=== PATIENT | female | born 1965 | race Caucasian/White ===

== ENCOUNTER 2016-09-19 16:07 | Observation (INO) | payer OTHER ==
[~2016-09-19] VITALS: Ht 149.9 cm; Wt 84.8 kg
[~2016-09-19 16:07] MED LIST: FLAX1CAP11 PO; GLUCTAB7 PO; IBUP-1277 PO; MULT-602 PO
[2016-09-19] MEDS ORDERED: ASPIRIN 324 MG CHEW PO STA (17:06)
[2016-09-19 18:10] LABS: BASO % 0.3 %; BASO ABS # 0.02 K/uL (0-0.2); COMPLETE YES; EOS % 5.3 %; HEMATOCRIT 37.3 % (37-47); IG% 0.1 %; LYMPH % 30.3 %; LYMPH ABS # 2.11 K/uL (1.2-3.4); MEAN CELL VOLUME 91.2 fL (80-100); MEAN CORPUSCULAR HEMOGLOBIN 31.1 pg (25-34); MEAN PLATELET VOLUME 11.1 fL (7.4-10.4); MONO % 6.3 %; NEUT % 57.7 %; PLATELET COUNT 292 K/uL (130-400); RED BLOOD COUNT 4.09 M/uL (4.2-5.4); WHITE BLOOD COUNT 6.96 K/uL (4.8-10.8)
[2016-09-19 18:28] LABS: ALT/SGPT 23 U/L (12-78); AST/SGOT 17 U/L (15-37); BLOOD UREA NITROGEN 13 mg/dl (7-18); BUN/CREATININE RATIO 18.1 (10-20); CARBON DIOXIDE 24 mmol/L (21-32); CHLORIDE 103 mmol/L (98-107); GLUCOSE 79 mg/dl (70-99); POTASSIUM 3.8 mmol/L (3.5-5.1); SODIUM 140 mmol/L (136-145)
[2016-09-19] MEDS ORDERED: METF500T5 PO (18:31)
[2016-09-19] MEDS ORDERED: CHOL1000 PO (18:31)
[2016-09-19] MEDS ORDERED: APRI28 PO (18:31)
[2016-09-19 18:33] LABS: ALKALINE PHOSPHATASE 57 U/L (45-117); CKMB/CK RATIO 4.4 (0-3.0)
[2016-09-19] MEDS ORDERED: DEXT30TA7 PO (18:33)
--- NOTE | 2016-09-19 18:46 | DIAGNOSTIC IMAGING REPORT ---
TWO VIEW CHEST CLINICAL HISTORY: Atypical chest pain. FINDINGS: PA and lateral chest radiographs are compared to study dated 05/06/2013. The cardiomediastinal silhouette is unremarkable. The lungs and pleural spaces are clear. There is no pneumothorax. The bony thorax appears intact. Cholecystectomy clips are noted. IMPRESSION: No active disease in the chest. Electronically signed by: Jitendra Park M.D. 09/19/2016 6:45 PM Dictated Date/Time: 09/19/2016 6:45 PM
[2016-09-19 19:22] LABS: PROTHROMBIN TIME (PATIENT) 10.2 SECONDS (9.0-12.0)
--- NOTE | 2016-09-19 20:07 | EMERGENCY ROOM VISIT NOTE ---
History First contact with patient: 16:56 Chief Complaint: CHEST PAIN Stated Complaint: CHEST PAIN,LF ARM NUMBNESS,FOR A FEW DAYS Nursing Triage Summary: chest pains x's 4 days intermittent. pain was more concentrated in upper chest. denies sob. History of Present Illness The patient is a 51 year old female who presents to the Emergency Room with complaints of intermittent chest pains over the past 4 days. The patient describes the pain as a burning tightness in her chest. The patient states the burning is different than heartburn. The patient states that the pain started in the lower substernal area and then moved superior and now is more towards the left shoulder. The patient denies any pain going down her arm or in her jaw. The patient denies any diaphoresis, nausea or vomiting. The patient denies any tobacco use but does admit to control pills. The patient denies any recent URI symptoms. The patient denies any leg pain, recent surgery or travel. The patient denies any hypertension or hyperlipidemia. She does have a paternal grandfather who in his 50s from an acute NE. Review of Systems 10 system review was performed and was negative unless stated otherwise history of present illness. Past Medical/Surgical History Medical Problems: (1) Carpal tunnel syndrome (2) section (3) Cholecystectomy (4) Hypoglycemia Social History Smoking Status: Never Smoker Marital Status: Housing Status: lives with family Current/Historical Medications Scheduled Cholecalciferol (Vitamin D3), 1 TAB PO DAILY Ethinyl Estrad/Desogestrel (Apri), 1 TAB PO DAILY Metformin Hcl Er (Glucophage Er), 500 MG PO BID Multiple Vitamins W/ Minerals (Womens 50+ Multi Vitamin), 1 TABLET PO DAILY Scheduled PRN Dextromethorphan-Guaifenesin (Mucinex Dm), 1 TAB PO Q12 PRN for Cough Allergies Coded Allergies: No Known Allergies (Unverified , 09/19/16) Physical Exam Vital Signs Date Time Temp Pulse Resp B/P Pulse Ox O2 Delivery O2 Flow Rate FiO2 09/19/16 19:56 65 20 150/95 09/19/16 18:33 67 24 09/19/16 18:28 68 24 126/81 09/19/16 18:23 63 14 09/19/16 18:18 63 17 09/19/16 18:13 65 23 09/19/16 18:08 67 25 09/19/16 18:03 62 21 09/19/16 17:58 133/75 09/19/16 17:57 65 14 09/19/16 17:54 72 09/19/16 17:52 73 34 09/19/16 17:51 115/62 09/19/16 16:08 37.0 72 18 149/86 100 Room Air Physical Exam GENERAL: 51-year-old white female appears in no acute distress. MENTAL Status: Alert and oriented 3 EYES: PERRLA. EOMs intact. EARS: Canals clear. TMs without fluid level noted. NECK: Supple, no lymphadenopathy noted. No carotid bruits noted. LUNGS: Clear auscultation without wheezes rales or rhonchi. CARDIAC: Regular rate and rhythm without murmur. Pulses is full and equal throughout. ABDOMEN: Positive bowel sounds all 4 quadrants. Soft, mild tenderness to palpation in the epigastric region otherwise nontender to palpation without organomegaly or masses. LOWER EXTREMITIES: Calves nontender. No cyanosis or edema noted. No palpable cords. Negative Homans bilaterally. Medical Decision & Procedures ER Provider Diagnostic Interpretation: TWO VIEW CHEST CLINICAL HISTORY: Atypical chest pain. FINDINGS: PA and lateral chest radiographs are compared to study dated 05/06/2013. The cardiomediastinal silhouette is unremarkable. The lungs and pleural spaces are clear. There is no pneumothorax. The bony thorax appears intact. Cholecystectomy clips are noted. IMPRESSION: No active disease in the chest. Electronically signed by: Jitendra Park M.D. 09/19/2016 6:45 PM Laboratory Results 09/19/16 18:00 Red Blood Count 4.09, Mean Corpuscular Volume 91.2, Mean Corpuscular Hemoglobin 31.1, Mean Corpuscular Hemoglobin Concent 34.0, Mean Platelet Volume 11.1, Neutrophils (%) (Auto) 57.7, Lymphocytes (%) (Auto) 30.3, Monocytes (%) (Auto) 6.3, Eosinophils (%) (Auto) 5.3, Basophils (%) (Auto) 0.3, Neutrophils # (Auto) 4.01, Lymphocytes # (Auto) 2.11, Monocytes # (Auto) 0.44, Eosinophils # (Auto) 0.37, Basophils # (Auto) 0.02 09/19/16 18:00 Test 09/19/16 18:00 09/19/16 19:02 White Blood Count 6.96 K/uL (4.8-10.8) Red Blood Count 4.09 M/uL (4.2-5.4) Hemoglobin 12.7 g/dL (12.0-16.0) Hematocrit 37.3 % (37-47) Mean Corpuscular Volume 91.2 fL (80-100) Mean Corpuscular Hemoglobin 31.1 pg (25-34) Mean Corpuscular Hemoglobin Concent 34.0 g/dl (32-36) Platelet Count 292 K/uL (130-400) Mean Platelet Volume 11.1 fL (7.4-10.4) Neutrophils (%) (Auto) 57.7 % Lymphocytes (%) (Auto) 30.3 % Monocytes (%) (Auto) 6.3 % Eosinophils (%) (Auto) 5.3 % Basophils (%) (Auto) 0.3 % Neutrophils # (Auto) 4.01 K/uL (1.4-6.5) Lymphocytes # (Auto) 2.11 K/uL (1.2-3.4) Monocytes # (Auto) 0.44 K/uL (0.11-0.59) Eosinophils # (Auto) 0.37 K/uL (0-0.5) Basophils # (Auto) 0.02 K/uL (0-0.2) RDW Standard Deviation 44.6 fL (36.4-46.3) RDW Coefficient of Variation 13.3 % (11.5-14.5) Immature Granulocyte % (Auto) 0.1 % Immature Granulocyte # (Auto) 0.01 K/uL (0.00-0.02) Anion Gap 13.0 mmol/L (3-11) Est Creatinine Clear Calc Drug Dose 90.0 ml/min Estimated GFR () 114.6 Estimated GFR (Non- 98.9 BUN/Creatinine Ratio 18.1 (10-20) Calcium Level 9.0 mg/dl (8.5-10.1) Total Bilirubin 0.3 mg/dl (0.2-1) Direct Bilirubin < 0.1 mg/dl (0-0.2) Aspartate Amino Transf (AST/SGOT) 17 U/L (15-37) Alanine Aminotransferase (ALT/SGPT) 23 U/L (12-78) Alkaline Phosphatase 57 U/L (45-117) Total Creatine Kinase 27 U/L (26-192) Creatine Kinase MB 1.2 ng/ml (0.5-3.6) Creatine Kinase MB Ratio 4.4 (0-3.0) Total Protein 7.4 gm/dl (6.4-8.2) Albumin 3.4 gm/dl (3.4-5.0) Lipase 259 U/L (73-393) Prothrombin Time 10.2 SECONDS (9.0-12.0) Prothromb Time International Ratio 1.0 (0.9-1.1) Activated Partial Thromboplast Time 25.8 SECONDS (21.0-31.0) Partial Thromboplastin Ratio 1.0 D-Dimer 270 ug/L FEU (0-500) Medications Administered Medications (Trade) Dose Ordered Sig/Tristen Route Start Time Stop Time Status Last Admin Dose Admin Aspirin (Aspirin Chew) 324 mg NOW STAT PO 09/19/16 17:06 09/19/16 17:08 DC 09/19/16 17:46 324 MG ECG Indication: chest pain Rhythm: normal sinus Findings: no acute ischemic change ED Course The patient was evaluated. IV access was obtained. CBC and differential, coags , CK-MB, renal profile, LFTs and lipase levels were ordered. Pointing care d- dimer, troponin and BNP was ordered. Chest x-ray was ordered and interpreted by the radiologist and myself as above without any acute findings. EKG was ordered interpreted by myself as above without any acute findings. The patient was given 324 mg of chewable baby aspirin. Labs are reviewed. D-dimer was negative. Troponin was negative. Other labs are reviewed and were unremarkable. The patient's case was discussed with Dr. Suresh who independently evaluated the patient and agree with treatment plan. He also reviewed the EKG and thought there were some slight T wave changes as compared to her prior EKG. The hospitalist was consulted for cardiac rule out. Medical Decision Differential diagnosis include acute PE, bronchitis, GERD, pneumonia, acute NE, muscular strain Due to the patient normally ignoring symptoms but this brought her to the hospital the specialist that she is a female she will be admitted for at least observation for cardiac rule out. Impression Primary Impression: CHEST PAIN, UNSPECIFIED Departure Information Dispostion Being Evaluated By Hospitalist Condition GOOD Referrals Justino Diaz MD (PCP) Patient Instructions My [facility]
[2016-09-19] MEDS ORDERED: KETOROLAC TROMETHAMINE 30 MG/ML VIAL IV PRN (22:00)
[2016-09-19] MEDS ORDERED: NITROGLYCERIN 0.4 MG SL PER TAB CHARGE SL PRN (22:00)
[2016-09-19] MEDS ORDERED: MoRPHine SULFATE 4 MG/ML 1 ML CARP\\VIAL IV PRN (22:00)
[2016-09-19] MEDS ORDERED: LORAZEPAM 2 MG/ML 1 ML VIAL IV PRN (22:00)
[2016-09-19] MEDS ORDERED: TRAMADOL HCL 50 MG TAB PO PRN (22:00)
[2016-09-19] MEDS ORDERED: ONDANSETRON INJ 2 MG/ML 2 ML VIAL IV PRN (22:00)
[2016-09-19 23:00] VITALS: BP 116/81; PULSE 76; TEMP 36.8; Ht 149.9 cm; Wt 84.8 kg
[2016-09-19] MEDS ORDERED: IV FLUIDS COMPLETED PRN (23:00)
[2016-09-19] MEDS ORDERED: PANTOprazole SOD 40 MG TAB PO ONE (23:15)
[2016-09-19] MEDS: LACTATED RINGER'S 1000ML 1,000 ML IV SCH (23:50)
--- NOTE | 2016-09-19 23:50 | HISTORY & PHYSICAL EXAMINATION ---
DATE OF ADMISSION: 09/19/2016 PRIMARY CARE DOCTOR: Dr. Diaz CHIEF COMPLAINT: Chest pain. HISTORY OF PRESENT ILLNESS: Medical history significant for reflux as per records, endometriosis as per records, asthma as per records, cervical adenoma maligna sp surgery, reactive hypoglycemia. Recent confinement in May 2013 for pleuritic chest pain. Stress test was normal. Four 4 days on and off left-sided chest pain going to her left shoulder. Burning in quality. No shortness of breath, no diaphoresis. Admits to some exertion at home, pushing furniture as per , some anxiety at home. Patient currently comfortable. MEDICAL HISTORY: As above. SURGERIES: Gynecologic procedures, cholecystectomy. HOME MEDICATIONS: Include vitamin D, Mucinex, Glucophage, multivitamins. ALLERGIES: No known drug allergies. FAMILY HISTORY: Heart disease, diabetes. PERSONAL AND SOCIAL HISTORY: Nonsmoker, no chronic intake of alcoholic beverages. [employer]. REVIEW OF SYSTEMS: As per HPI. All other ROS negative. PHYSICAL EXAMINATION: VITAL SIGNS: Blood pressure was noted to be 120/90, pulse rate 65, RR 18, 36.6, sats 98 on room air. GENERAL: Noted to be obese, slightly anxious, no respiratory distress. SKIN: Normal color. HEENT: Van palpebral conjunctivae. Dry mucosa. NECK: Short neck. LUNGS: Decreased breath sounds. CHEST: Anterior chest wall tenderness on the left. HEART: Regular rate and rhythm. ABDOMEN: Soft. EXTREMITIES: No edema, no tenderness. NEUROLOGIC: No gross focality. LABORATORY DATA: Hemoglobin was noted to be 12.7, hematocrit 37.3, white cells 6.9, platelets 292. Sodium 140, potassium 3.8, chloride 103, CO2 of 24, BUN 20, creatinine 0.7, glucose was noted to be 79. Troponin normal. Chest x-ray, no active disease. EKG NSR T-wave flattening in the septal, inferior leads. ASSESSMENT: 1. Atypical chest pain possible GERD with "burning" quality definitely w musculoskeletal component w/ reproducibility anxiety contributory Rule out acute coronary syndrome. 2. Reactive hypoglycemia as per records. PLAN: Observation PCU. PPI trial. analgesia, anxiolytic prn Stress test in the morning if next troponin normal. Aspirin for CAD prevention until troponin negative. DVT prophylaxis, Lovenox SQ Full code. MTDD
[2016-09-20] VITALS (11 sets, daily range): BP systolic 103–130; BP diastolic 67–84; PULSE 58–81; TEMP 36.5–37; O2SAT 94–96
[2016-09-20 05:04] LABS: BASO % 0.6 %; BASO ABS # 0.04 K/uL (0-0.2); COMPLETE YES; EOS % 5.9 %; HEMATOCRIT 34.8 % (37-47); IG% 0.1 %; LYMPH % 35.2 %; LYMPH ABS # 2.43 K/uL (1.2-3.4); MEAN CELL VOLUME 89.5 fL (80-100); MEAN CORPUSCULAR HEMOGLOBIN 30.8 pg (25-34); MEAN CORPUSCULAR HGB CONC 34.5 g/dl (32-36); MEAN PLATELET VOLUME 10.9 fL (7.4-10.4); NEUT % 50.2 %; PLATELET COUNT 274 K/uL (130-400); RED BLOOD COUNT 3.89 M/uL (4.2-5.4)
[2016-09-20 05:24] LABS: CHOLESTEROL 212 mg/dl (0-200); CHOLESTEROL/HDL RATIO 3.7; HDL CHOLESTEROL 58 mg/dl; LDL CHOLESTEROL CALCULATED 114 mg/dl; TRIGLYCERIDES 198 mg/dl (0-150); VERY LOW DENSITY LIPOPROT CALC 40 mg/dl
[2016-09-20] MEDS: ACETAMINOPHEN 325 MG TAB PO PRN (08:07)
[2016-09-20] MEDS ORDERED: PANTOprazole SOD 40 MG TAB PO SCH (09:00)
[2016-09-20] MEDS ORDERED: ASPIRIN 81 MG ECTAB PO SCH (09:00)
[2016-09-20] MEDS ORDERED: ENOXAPARIN 40 MG/0.4 ML SYR SC SCH (09:00)
[2016-09-20] MEDS ORDERED: ALBUTEROL HFA 8 GM INHALER INH PRN (10:45)
--- NOTE | 2016-09-20 11:22 | EXERCISE STRESS ECHO ---
*NOTICE TO RECEIVING DEMOCRAT AGENCY This information is strictly Confidential and protected under [place] law. [place] law prohibits you from making any further disclosure of this information unless further disclosure is expressly permitted by the written consent of the person to whom it pertains or is authorized by law. A general authorization for the release of medical or other information is not sufficient for this purpose. Hospital accepts no responsibility if the information is made available to any other person, INCLUDING THE PATIENT. Interpretation Summary * Name: LEEANNA SHEPHERD Study Date: 09/20/2016 09:01 AM BP: 115/79 mmHg * Patient Location: [facility]\S\N285\S\1 HR: 64 * : 1965 (M/d/yyyy) Gender: Female Height: 59 in * Age: 51 yrs Ethnicity: CA Weight: 191 lb * Ordering Physician: Evin Rodriguez * Referring Physician: Self, Referred * Performed By: Jodee Baer RCS * * Reason For Study: Chest Pain * BSA: 1.8 m2 * -- Conclusions -- * The exercise stress echocardiogram is inconclussive for excluding ischemia. * Patient's presenting symptoms were reproduced with exercised and progressed with continued exercise. * The EKG response was equivocal. * The post stress images were equivocal. * No significnat valvular heart disease was noted on the resting study. Procedure Details * ECHOEX, CPT #[id number] * ECHO COLOR FLOW, CPT #[id number] * ECHO DOPPLER, CPT #[id number] Left Ventricle * The left ventricle is normal in size. * There is normal left ventricular wall thickness. * Left ventricular systolic function is normal. * Ejection Fraction = 60-65%. * The resting wall motion is normal. The left ventricular systolic function increases appropriately with exercise. No stress induced wall motion abnormalities, however, images were technically limited and heart rate had recovered to a degree where the ischemic window could have been missed. Right Ventricle * The right ventricle is normal in size and function. Atria * The left atrial size is normal. * Right atrial size is normal. * No ASD detected; PFO is not assessed. Mitral Valve * The mitral valve is normal. * There is no mitral valve stenosis. * There is trace mitral regurgitation. Tricuspid Valve * The tricuspid valve is normal. * There is no tricuspid stenosis. * Significant tricuspid regurgitation is absent. * Doppler findings do not suggest pulmonary hypertension. Aortic Valve * The aortic valve is trileaflet. * No hemodynamically significant valvular aortic stenosis. * No aortic regurgitation is present. Pulmonic Valve * The pulmonic valve is not well visualized. Great Vessels * The aortic root is normal size. Pericardium * There is no pericardial effusion. Stress Parameters * The baseline EKG reveals sinus rhythm at 64 bpm with diffuse non specific ST flattening. * The stress EKG tracings are technically limited due to the prescence of baseline artifact. , however the synthesized summary data reveals 2 mm horizontal and upsloping ST segment depression. Left Ventricular Diastolic Function * Grade I diastolic dysfunction, (abnormal relaxation pattern). MMode 2D Measurements and Calculations IVSd 0.98 cm IVSs 1.2 cm LVIDd 4.5 cm LVIDs 3.0 cm LVPWd 0.93 cm LVPWs 1.2 cm IVS/LVPW 1.0 FS 33.3 % EDV(Teich) 94.1 ml ESV(Teich) 35.7 ml EF(Teich) 62.1 % EDV(cubed) 93.2 ml ESV(cubed) 27.6 ml EF(cubed) 70.4 % % IVS thick 20.2 % % LVPW thick 33.5 % LV mass(C)d 146.1 grams LV mass(C)dI 80.8 grams/m\S\2 LV mass(C)s 112.1 grams LV mass(C)sI 62.0 grams/m\S\2 CO(Teich) 3.9 l/min CI(Teich) 2.2 l/min/m\S\2 SV(Teich) 58.5 ml SI(Teich) 32.3 ml/m\S\2 CO(cubed) 4.4 l/min CI(cubed) 2.4 l/min/m\S\2 SV(cubed) 65.6 ml SI(cubed) 36.3 ml/m\S\2 Ao root diam 2.9 cm Ao root area 6.6 cm\S\2 ACS 1.4 cm LA dimension 3.3 cm LA/Ao 1.2 LVAd ap4 32.7 cm\S\2 LVLd ap4 8.1 cm EDV(MOD-sp4) 110.0 ml LVAs ap4 16.4 cm\S\2 LVLs ap4 6.5 cm ESV(MOD-sp4) 36.0 ml EF(MOD-sp4) 67.3 % LVAd ap2 30.3 cm\S\2 LVLd ap2 8.1 cm EDV(MOD-sp2) 95.0 ml LVAs ap2 15.8 cm\S\2 LVLs ap2 6.3 cm ESV(MOD-sp2) 33.0 ml EF(MOD-sp2) 65.3 % CO(MOD-sp4) 5.0 l/min CI(MOD-sp4) 2.7 l/min/m\S\2 SV(MOD-sp4) 74.0 ml SI(MOD-sp4) 40.9 ml/m\S\2 CO(MOD-sp2) 4.2 l/min CI(MOD-sp2) 2.3 l/min/m\S\2 SV(MOD-sp2) 62.0 ml SI(MOD-sp2) 34.3 ml/m\S\2 Doppler Measurements and Calculations MV E max santos 57.7 cm/sec MV A max santos 54.6 cm/sec MV E/A 1.1 MV P1/2t max santos 67.8 cm/sec MV P1/2t 95.7 msec MVA(P1/2t) 2.3 cm\S\2 MV dec slope 207.5 cm/sec\S\2 MV dec time 0.24 sec Ao V2 max 98.2 cm/sec Ao max PG 3.9 mmHg Ao max PG (full) 1.7 mmHg LV V1 max PG 2.1 mmHg LV V1 max 73.1 cm/sec PA V2 max 62.1 cm/sec PA max PG 1.5 mmHg TR max santos 190.2 cm/sec
--- NOTE | 2016-09-20 11:59 | EMERGENCY ROOM VISIT NOTE ---
ED Visit Note First contact with patient: 16:56 I have personally evaluated this patient examined her and reviewed the pertinent labs and data. I have discussed the case with Fiona perez, the physician school health assistant and agree with the plan. Please refer to the PA note This patient comes in complaining of chest pain off-and-on for the last couple days. She does have family history of cardiac disease. Her EKG does have some T-wave inversions anteriorly which are changed from previous. No elevation of her troponin. The rest of her workup was unremarkable didn't think she needs to be admitted to rule out cardiac disease. We have consulted the [facility] hospitalist.
--- NOTE | 2016-09-20 12:28 | Progress Note ---
Medicine Progress Note Date & Time of Visit: Sep 20, 2016 at 12:24. Subjective patient states she feels ok overall denies chest pain s/p Stress Test today breathing and cough have improved no other symptoms Objective Last 8 Hrs Date Time Temp Pulse Resp B/P Pulse Ox O2 Delivery O2 Flow Rate FiO2 09/20/16 11:49 36.7 81 16 118/76 94 Room Air 09/20/16 08:00 94 Room Air 09/20/16 07:10 36.8 58 17 103/68 94 Room Air Physical Exam: General-oriented x 3, not in distress Head- atraumatic Eyes- PERRL, EOMI, anicteric ENT- oropharynx clear Neck- supple, no JVD, no adenopathy, no thyromegaly Lungs- clear to auscultation b/l Heart- normal rate, regular rhythm; no murmurs Abdomen- normal bowel sounds, soft, nontender Extremities- no pretibial edema, no calf tenderness; Neuro- alert, oriented x 3; no gross focal deficits Skin- warm & dry Laboratory Results: Last 24 Hours Test 09/19/16 18:00 09/19/16 19:02 09/19/16 23:10 09/20/16 04:25 White Blood Count 6.96 K/uL 6.90 K/uL Red Blood Count 4.09 M/uL 3.89 M/uL Hemoglobin 12.7 g/dL 12.0 g/dL Hematocrit 37.3 % 34.8 % Mean Corpuscular Volume 91.2 fL 89.5 fL Mean Corpuscular Hemoglobin 31.1 pg 30.8 pg Mean Corpuscular Hemoglobin Concent 34.0 g/dl 34.5 g/dl Platelet Count 292 K/uL 274 K/uL Mean Platelet Volume 11.1 fL 10.9 fL Neutrophils (%) (Auto) 57.7 % 50.2 % Lymphocytes (%) (Auto) 30.3 % 35.2 % Monocytes (%) (Auto) 6.3 % 8.0 % Eosinophils (%) (Auto) 5.3 % 5.9 % Basophils (%) (Auto) 0.3 % 0.6 % Neutrophils # (Auto) 4.01 K/uL 3.46 K/uL Lymphocytes # (Auto) 2.11 K/uL 2.43 K/uL Monocytes # (Auto) 0.44 K/uL 0.55 K/uL Eosinophils # (Auto) 0.37 K/uL 0.41 K/uL Basophils # (Auto) 0.02 K/uL 0.04 K/uL RDW Standard Deviation 44.6 fL 43.9 fL RDW Coefficient of Variation 13.3 % 13.4 % Immature Granulocyte % (Auto) 0.1 % 0.1 % Immature Granulocyte # (Auto) 0.01 K/uL 0.01 K/uL Sodium Level 140 mmol/L Potassium Level 3.8 mmol/L Chloride Level 103 mmol/L Carbon Dioxide Level 24 mmol/L Anion Gap 13.0 mmol/L Blood Urea Nitrogen 13 mg/dl Creatinine 0.70 mg/dl Est Creatinine Clear Calc Drug Dose 90.0 ml/min Estimated GFR () 114.6 Estimated GFR (Non- 98.9 BUN/Creatinine Ratio 18.1 Random Glucose 79 mg/dl Calcium Level 9.0 mg/dl Magnesium Level 2.0 mg/dl Total Bilirubin 0.3 mg/dl Direct Bilirubin < 0.1 mg/dl Aspartate Amino Transf (AST/SGOT) 17 U/L Alanine Aminotransferase (ALT/SGPT) 23 U/L Alkaline Phosphatase 57 U/L Total Creatine Kinase 27 U/L Creatine Kinase MB 1.2 ng/ml Creatine Kinase MB Ratio 4.4 Total Protein 7.4 gm/dl Albumin 3.4 gm/dl Lipase 259 U/L Prothrombin Time 10.2 SECONDS Prothromb Time International Ratio 1.0 Activated Partial Thromboplast Time 25.8 SECONDS Partial Thromboplastin Ratio 1.0 D-Dimer 270 ug/L FEU Troponin I < 0.015 ng/ml < 0.015 ng/ml Triglycerides Level 198 mg/dl Cholesterol Level 212 mg/dl HDL Cholesterol 58 mg/dl LDL Cholesterol, Calculated 114 mg/dl VLDL Cholesterol, Calculated 40 mg/dl Cholesterol/HDL Ratio 3.7 Assessment & Plan CHEST PAIN R/O ANGINA cardiac markers negative EKG non specific t wave changes in lateral leads s/p Stress Test: Equivocal - Dr. Ye consulted for possible Cardiac Cath HISTORY OF REACTIVE HYPOGLYCEMIA bsg ac and HS, q6h if NPO dvt prophylaxis Lovenox Disposition pending Current Inpatient Medications: Current Inpatient Medications Medications (Trade) Dose Ordered Sig/Tristen Route Start Time Stop Time Status Last Admin Dose Admin Pantoprazole Sodium (Protonix Tab) 40 mg QAM PO 2/14/17 09:00 10/20/16 08:59 09/20/16 08:09 40 MG Aspirin (Ecotrin Tab) 81 mg QAM PO 09/20/16 09:00 10/20/16 08:59 09/20/16 08:08 81 MG Enoxaparin Sodium (Lovenox Inj) 40 mg Q24H SC 09/20/16 09:00 10/20/16 08:59 09/20/16 09:00 40 MG Acetaminophen (Tylenol Tab) 650 mg Q4H PRN PO 09/19/16 22:00 10/19/16 21:59 09/20/16 08:07 650 MG Nitroglycerin (Nitrostat Tab) 0.4 mg UD PRN SL 09/19/16 22:00 10/19/16 21:59 Morphine Sulfate (MoRPHine SULFATE INJ) 4 mg Q3H PRN IV 09/19/16 22:00 10/03/16 21:59 Tramadol HCl (Ultram Tab) 25 mg Q6H PRN PO 09/19/16 22:00 10/19/16 21:59 Lorazepam (Ativan Inj) 0.5 mg Q4H PRN IV 09/19/16 22:00 10/19/16 21:59 Ondansetron HCl 4 mg 4 mg Q6H PRN IV 09/19/16 22:00 10/19/16 21:59 Lactated Ringer's (Lr 1000ml) 1,000 ml @ 50 mls/hr Q20H IV 09/19/16 22:00 10/19/16 21:59 09/19/16 23:50 50 MLS/HR Miscellaneous (Iv Fluids Completed) 1 ea PRN PRN N/A 09/19/16 23:00 09/19/17 22:59 Albuterol (Ventolin Hfa Inhaler) 2 puffs Q4H PRN INH 09/20/16 10:45 10/20/16 10:44 09/20/16 11:02 2 PUFFS
--- NOTE | 2016-09-20 12:51 | CARDIOLOGY CONSULTATION ---
DATE OF CONSULTATION: 09/20/2016 INDICATION FOR CONSULTATION: Chest discomfort. HISTORY OF PRESENT ILLNESS: Willa Esteban is a 51-year-old female seen in cardiology consultation per the request of Dr. Prescott for the evaluation of chest discomfort. Her primary care provider is Dr. Justino Diaz of [facility] at [facility]. She does not have the previously established relationship with the whey department operator. The patient's recent illness began approximately 1 week ago, when on a Monday she was sitting in a staff meeting at work and felt left arm numbness. This lasted a brief amount of time and then she felt transient right arm numbness. On , she had no extremity numbness and no chest discomfort but felt generalized illness. Two days later on Monday, she felt a pins and needles type discomfort over her entire chest, as well as a sensation of burning. She stated it did not feel like heartburn. This occurred while she was active, walking in a department store. On Monday, she felt generalized illness again, as if she was going to get a flu illness but developed no fever and no significant respiratory complaints. On Monday, she developed burning in her chest again. She subsequently presented to the Emergency Department yesterday. Initial EKG performed on 09/19/2015 at 1610 revealed normal sinus rhythm with very mild nonspecific ST abnormality. A second EKG performed this morning was once again unchanged and serial cardiac enzymes have been negative overnight. She subsequently was referred for an exercise stress echocardiogram. The patient exercised into stage III of a Pedro protocol. She reproduced her chest pain symptoms during stage II of exercise and her symptoms were progressive with additional exercise. Equivocal EKG changes were noted. There was a significant amount of baseline artifact in the raw data, and the computer synthesized data revealed abnormal ST depression. Her postexercise images were somewhat equivocal as there was some degree of delay between the end of exercise and to when the images were obtained, and no diagnostic apical 4-chamber view was obtained. The patient's images in the parasternal imaging plane were technically adequate, by this time the heart rate had recovered significantly. Post-stress test, the patient had significant cough and she states that she does have a history of exercise induced asthma with cold weather. When I discussed her discomfort with her more, she describes 2 separate discomforts, one that can be reproduced and is adjacent to her left breast bone where the ultrasound probe had been placed and a kind of a separate, internal chest discomfort. The patient states that she has been under a great deal of psychological stress recently. Her father a year ago and her mother is having difficulty living alone and plans to move to the area to be closer. PAST MEDICAL HISTORY: 1. Impaired glucose tolerance, for which she is on metformin. 2. Gastroesophageal reflux disease. 3. Endometriosis. 4. Asthma. PAST SURGICAL HISTORY: History of gynecologic procedures and cholecystectomy. FAMILY HISTORY: Heart disease in aunts, uncles and grandparents but not in her parents. SOCIAL HISTORY: She is a nonsmoker. Denies alcohol use. COMPREHENSIVE REVIEW OF SYSTEMS: A 10-point review of systems was reviewed and is negative with the exception of that noted in the HPI. ALLERGIES: No known drug allergies. HOME MEDICATIONS: 1. Vitamin D. 2. Mucinex. 3. Glucophage. 4. Multivitamin. PHYSICAL EXAMINATION: VITAL SIGNS: Temperature 36.8, heart rate 58, blood pressure 138/68, pulse oximetry 94% on room air and 96% on room air. GENERAL APPEARANCE: Awake and oriented x3. NECK: No bruits. CARDIOVASCULAR: Regular rhythm. No murmurs, rubs or gallops. LUNGS: Clear. No rales, rhonchi or wheezing. ABDOMEN: Soft, nontender. EXTREMITIES: No edema. NEUROLOGIC: No focal deficits. DIAGNOSTIC DATA: EKG x2 was negative. Stress test as noted above. WBC was 6.9, hemoglobin 12, platelet count 274, BUN 13, creatinine 0.7. Troponin less than 0.015 x2 measurements, triglycerides 198, total cholesterol 112. LDL cholesterol 114. Chest x-ray, no active cardiopulmonary disease. FINAL IMPRESSION: A 51-year-old female with chest discomfort that has waxed and waned over several days in the setting of recent increased emotional stress. Her initial presentation is somewhat atypical for angina but her symptoms were reproduced with exercise today with equivocal EKG changes and equivocal images. I would determine that her stress test is somewhat inconclusive and I recommend further evaluation. The patient is agreeable to cardiac catheterization if indicated. After she finished exercising, she did have some degree of coughing which is similar to her past symptoms that have been described as asthma. An albuterol inhaler was ordered and she received a dose of palliation of her cough symptoms. She notes that the cough symptoms are different than what initially brought her to the hospital and different than what she complained about during the stress test. I discussed the case with Dr. Prescott of internal medicine. Further cardiology recommendations will be forthcoming. YVON
[2016-09-20] MEDS ORDERED: DC ALL ANTICOAGULANTS ONE (14:30)
--- NOTE | 2016-09-20 14:58 | PROGRESS NOTE ---
DATE: 09/20/2016 SUBJECTIVE: Ms. Esteban is a 51-year-old female who presented with chest pain and underwent stress test that was equivocal today. She reproduced her symptoms on the treadmill, but her EKG and stress echocardiogram were somewhat limited. I have explained the risks, benefits and intent of a cardiac catheterization to the patient. She is willing to proceed and our plan will be for an elective heart cath in the morning.
[2016-09-20] MEDS: LACTATED RINGER'S 1000ML 1,000 ML IV SCH (17:38)
[2016-09-20] MEDS ORDERED: ETHINYL ESTRADIOL PO STA (20:33)
[2016-09-20] MEDS ORDERED: DESOGESTREL PO STA (20:33)
[2016-09-21] VITALS (10 sets, daily range): BP systolic 98–155; BP diastolic 66–89; PULSE 58–96; TEMP 36.3–37.1; O2SAT 93–98
[2016-09-21] MEDS ORDERED: FENTANYL CITRATE INJ 50 MCG/1 ML 2 ML VIAL ONE (11:09)
[2016-09-21] MEDS ORDERED: NiCARDipine HCL INJ 2.5 MG/ML 10 ML AMP ONE (11:09)
[2016-09-21] MEDS ORDERED: HEPARIN SOD (PORCINE) 1000 UNIT/ML 10 ML VIAL ONE (11:09)
[2016-09-21] MEDS ORDERED: MIDAZOLAM HCL 1 MG/ML 2ML VIAL ONE (11:10)
[2016-09-21] MEDS ORDERED: NITROGLYCERIN/D5W 100MCG/ML 20ML SYR ONE (11:12)
[2016-09-21] MEDS ORDERED: SODIUM CHLORIDE 0.9% 1000ML 250 ML IV PRN (11:49)
[2016-09-21] MEDS ORDERED: SODIUM CHLORIDE 0.9% 1000ML 1,000 ML IV SCH ×2 (11:49)
--- NOTE | 2016-09-21 11:56 | Cardiac Catheterization ---
Procedure Note Procedure Date Sep 21, 2016. Pre-Procedure Diagnosis Angina AUC Score 7 Post-Procedure Diagnosis Normal Coronary Arteries Procedure(s) Performed Coronary Angiography Obstetrics Gyn Dr. Ye Folder Machine Adjuster(s) None Estimated Blood Loss None Medication(s) Versed, Lidocaine 1% Summary of Findings Normal Coronaries Hemodynamics Rest Ao: 104/70 Final Ao: 122/81 LV: valve not crossed Recommendations Medical therapy and/or Counseling Specimens None Radiation Exposure (mGy) 737 Contrast (mls) 62 Fluids (cc crystalloids) 23 Procedural Complication(s) None Disposition PCU ACC Data Cardiac Status Clinical evaluation leading to the procedure CAD Presntation: Sx unlikely to be ischemic Anginal Classification: No symptoms Heart Failure: No Cardiogenic Shock w/in 24Hrs: No Cardiac Arrest w/in 24Hrs: No Imaging studies past 6 months: Yes Stress studies past 6 months: No Standard Exercise Stress Test: No Stress Echocardiogram: Yes - Indeterminant Stress Testing w/SPECT MPI: No Cardiac CTA: No Coronary Anatomy Dominant: Right Left Main (% Stenosis): Normal LAD (% Stenosis): Normal Circumflex (% Stenosis): Normal RCA (% Stenosis): Normal Aortography Aortic Regurgitation: None Diagnostic Status: Elective Closure Device Percutaneous Entry Location: Radial Closure Device: Radial Band Recommendations: Medical therapy and/or Counseling
[2016-09-21] MEDS ORDERED: ONDANSETRON INJ 2 MG/ML 2 ML VIAL IV PRN (12:00)
[2016-09-21] MEDS ORDERED: ACETAMINOPHEN 325 MG TAB PO PRN (12:00)
[2016-09-21] MEDS ORDERED: ATROPINE SULFATE 0.1 MG/ML 5ML SYR IV PRN (12:00)
--- NOTE | 2016-09-21 12:47 | CARDIAC CATH REPORT ---
DATE OF PROCEDURE: 09/21/2016. PROCEDURE: Coronary angiography. HISTORY OF PRESENT ILLNESS: The patient is a 51-year-old female who presented with atypical chest pain and had an equivocal exercise stress test. PROCEDURE SUMMARY: The patient was seen and evaluated in the holding area of the solar lab technician. Once informed consent was obtained, the patient was taken to the cardiac catheterization lab where she was prepped and draped in the usual manner for a right transradial approach. A Barbeau maneuver was performed. Preformed 4-[place] diagnostic catheters were utilized for the coronary angiograms. Following the procedure, the patient had the arterial sheath removed and radial blank band placed. She was returned to her room in stable condition. CORONARY ANGIOGRAPHY: Selective injections of the left coronary artery revealed the left main trunk to be widely patent. The LAD extends to the apex of the heart. The LAD is smooth in appearance, widely patent, and within normal limits. The left circumflex artery is smooth in appearance, widely patent, and within normal limits. Left circumflex artery consists principally of a large lateral marginal branch. Selective injections of the right coronary artery reveal it to be dominant. The right coronary artery is smooth in appearance, widely patent, and within normal limits. SUMMARY: The patient has normal coronary arteries. RECOMMENDATIONS: For counseling and continued medical management.
[2016-09-21] MEDS: ACETAMINOPHEN 325 MG TAB PO PRN (13:39)
--- NOTE | 2016-09-21 18:19 | Progress Note ---
Medicine Progress Note Date & Time of Visit: Sep 21, 2016 at 18:09. Subjective s/p Cardiac cath today reporting pain on area surrounding the insertion site motor function and sensation intact no chest pain, dyspnea, dizziness, nausea/vomiting denies other symptoms Objective Last 8 Hrs Date Time Temp Pulse Resp B/P Pulse Ox O2 Delivery O2 Flow Rate FiO2 09/21/16 16:00 Room Air 09/21/16 15:32 36.4 58 18 137/83 97 Room Air 09/21/16 14:30 36.5 64 16 137/89 98 Room Air 09/21/16 14:00 60 16 120/68 97 Room Air 09/21/16 13:45 59 16 118/70 96 Room Air 09/21/16 13:30 58 16 120/68 96 Room Air 09/21/16 13:15 66 16 128/70 96 Room Air 09/21/16 13:00 68 16 120/68 96 Room Air 09/21/16 12:45 64 16 123/70 98 Room Air 09/21/16 12:30 62 16 129/78 96 Room Air 09/21/16 12:15 60 16 139/72 96 Room Air 09/21/16 12:00 70 16 129/68 96 Room Air 09/21/16 11:50 68 16 131/75 96 Room Air 09/21/16 11:45 67 16 120/68 96 Room Air 09/21/16 11:27 Physical Exam: General-oriented x 3, not in distress Eyes- anicteric Neck- no JVD Lungs- clear to auscultation bilaterally, no rales/wheezes Heart- normal rate, regular rhythm; no murmurs Abdomen- normal bowel sounds, soft, nontender Extremities- no pretibial edema, no calf tenderness right wrist: no hematoma/swelling/discoloration right hand: intact sensation 100% and motor 10% Neuro- alert, oriented x 3; no gross focal deficits Skin- warm & dry Laboratory Results: Last 24 Hours Test 09/20/16 20:09 09/21/16 16:16 Bedside Glucose 99 mg/dl 101 mg/dl Assessment & Plan ATYPICAL CHEST PAIN, POSSIBLE MUSCULAR ETIOLOGY, VS. GERD cardiac markers negative EKG non specific t wave changes in lateral leads 09/20/16: s/p Exercise Stress Test: Equivocal - also developed coughing spell after stress test, resolved with inhalers 09/21/16: s/p Cardiac Cath by Dr. Ye Normal Coronaries - reports pain on the right wrist- cath insertion site but no hematoma/ swelling discussed with Dr. Vargas, continue pain management, ice packs, office to call patient tomorrow to check - cleared for discharge home patient would like to be discharged today - d/c home on: Tramadol 50mg q6h PRN and Tylenol PRN for pain Ice packs daily trial of Protonix 40mg po daily x 2 weeks - ff up with PCP in 3-5 days HISTORY OF REACTIVE HYPOGLYCEMIA continue ff up with Endocrinology dvt prophylaxis Lovenox given Disposition d/c home today ff up with PCP in 3-5 days Current Inpatient Medications: Current Inpatient Medications Medications (Trade) Dose Ordered Sig/Tristen Route Start Time Stop Time Status Last Admin Dose Admin Pantoprazole Sodium (Protonix Tab) 40 mg QAM PO 09/20/16 09:00 10/20/16 08:59 09/20/16 08:09 40 MG Aspirin (Ecotrin Tab) 81 mg QAM PO 09/20/16 09:00 10/20/16 08:59 09/20/16 08:08 81 MG Enoxaparin Sodium (Lovenox Inj) 40 mg Q24H SC 09/20/16 09:00 10/20/16 08:59 Future Hold 09/20/16 09:00 40 MG Acetaminophen (Tylenol Tab) 650 mg Q4H PRN PO 09/19/16 22:00 10/19/16 21:59 09/21/16 13:39 650 MG Nitroglycerin (Nitrostat Tab) 0.4 mg UD PRN SL 09/19/16 22:00 10/19/16 21:59 Morphine Sulfate (MoRPHine SULFATE INJ) 4 mg Q3H PRN IV 09/19/16 22:00 10/03/16 21:59 Tramadol HCl (Ultram Tab) 25 mg Q6H PRN PO 09/19/16 22:00 10/19/16 21:59 09/21/16 18:04 50 MG Lorazepam (Ativan Inj) 0.5 mg Q4H PRN IV 09/19/16 22:00 10/19/16 21:59 Ondansetron HCl (Zofran Inj) 4 mg Q6H PRN IV 09/19/16 22:00 10/19/16 21:59 Miscellaneous (Iv Fluids Completed) 1 ea PRN PRN N/A 09/19/16 23:00 09/19/17 22:59 Albuterol (Ventolin Hfa Inhaler) 2 puffs Q4H PRN INH 09/20/16 10:45 10/20/16 10:44 09/20/16 11:02 2 PUFFS Miscellaneous Information 1 ea 1 ea QS N/A 09/21/16 00:00 10/21/16 00:00 09/20/16 22:47 1 EA Sodium Chloride 1,000 ml @ 80 mls/hr [id number] IV 09/21/16 11:49 10/21/16 11:48 09/21/16 11:49 80 MLS/HR Sodium Chloride (Nss 1000ml) 250 ml @ 999 mls/hr Q16M PRN IV 09/21/16 11:49 10/21/16 11:48 Atropine Sulfate (Atropine Sulfate 0.1MG/Ml Inj) 0.6 mg PRN PRN IV 09/21/16 12:00 10/21/16 11:59
[2016-09-21] MEDS ORDERED: TYL325X PO (18:23)
[2016-09-21] MEDS ORDERED: ULT50X PO (18:23)
[2016-09-21] MEDS ORDERED: PRT40 PO (18:23)
--- NOTE | 2016-09-21 18:46 | Discharge Instructions ---
Discharge Instructions Admission Reason for Admission: Chest Pain Discharge Discharge Diagnosis / Problem: CHEST PAIN Discharge Goals Goal(s): Diagnostic testing, Therapeutic intervention Activity Recommendations Activity Limitations: as noted below (NO HEAVY LIFTING OR STRENUOUS ACTIVITIES UNTIL SEEN BY PRIMARY CARE PHYSICIAN) Instructions / Follow-Up Instructions / Follow-Up Please monitor your right wrist. Call your Primary Care Physician or return to ER immediately if with swelling/bruising/redness/bleeding on the right wrist, pain on the wrist is increasing or not improving, fever/chills, persistent nausea/vomiting, worsening or recurrence of symptoms. Do not drive while taking Tramadol or still having wrist pain. Avoid strenuous activities/lifting. Avoid acidic or spicy foods, alcohol, carbonated drinks. Follow up with Dr. Diaz on Monday September 26, 2016 at 11:00 AM. Current Hospital Diet Patient's current hospital diet: AHA Diet (Heart Healthy) Discharge Diet Recommended Diet: AHA Diet (Heart Healthy) Procedures Procedures Performed: Exercise Stress Test, Cardiac Catheterization Pending Studies Studies pending at discharge: no Laboratory Results Lipid Panel Test 09/20/16 04:25 Range/Units Triglycerides Level 198 H 0-150 mg/dl Cholesterol Level 212 H 0-200 mg/dl HDL Cholesterol 58 mg/dl Cholesterol/HDL Ratio 3.7 LDL Cholesterol, Calculated 114 mg/dl Medical Emergencies . Who to Call and When: Medical Emergencies: If at any time you feel your situation is an emergency, please call 911 immediately. . Non-Emergent Contact Non-Emergency issues call your: Primary Care Provider Call Non-Emergent contact if: you have a fever, your pain is not controlled, wound has increased drainage, wound has increased redness, wound has increased pain, you have any medication questions . Past History Medical & Surgical History: (1) Carpal tunnel syndrome (2) section (3) Cholecystectomy (4) Hypoglycemia (5) Dysfunctional uterine bleeding (6) Dysfunctional uterine bleeding (7) Chest pain . "Provider Documentation" section prepared by Julien Prescott. VTE Core Measure Inpt VTE Proph given/why not?: Enoxaparin (Lovenox)[facility] [place] Drug Monitoring Program Search Results: patient reviewed within database, no issues identified
--- NOTE | 2016-09-21 19:43 | Discharge Summary ---
Discharge Summary Admission Date: Sep 19, 2016 at 21:33 Discharge Date: Sep 21, 2016 Principal Diagnosis: ATYPICAL CHEST PAIN Secondary Diagnoses/Problems: PLEASE REFER TO HOSPITAL COURSE BELOW. Procedures: EXERCISE STRESS TEST 09/20/16 , CARDIAC CATHETERIZATION 09/21/16 Consultations: FUEL SYSTEM MAINTENANCE SUPERVISOR DR. YE Pending Studies/Follow-Up: PLEASE MONITOR CATHETER INSERTION SITE RIGHT WRIST, REPEAT TRIGLYCERIDES ( ELEVATED AT 198) Medication Reconciliation New Medications: Acetaminophen (Tylenol) 325 Mg Tab 650 MG PO Q4H PRN for Pain or Fever for 7 Days do not take more than 3000 mg of Tylenol in one day Pantoprazole (Pantoprazole Sodium) 40 Mg Tab 40 MG PO QAM for 14 Days, #14 TAB 2 Refills take 30 minutes before first meal of the day Tramadol HCl (Tramadol HCl) 50 Mg Tab 50 MG PO Q6H PRN for Pain, #10 TAB 0 Refills Continued Medications: Cholecalciferol (Vitamin D3) 1,000 Unit Tab 1 TAB PO DAILY, TAB 3 Refills Dextromethorphan-Guaifenesin (Mucinex Dm) 1 Tab Tab 1 TAB PO Q12 PRN for Cough Ethinyl Estrad/Desogestrel (Apri) 1 Tab Tab 1 TAB PO DAILY, #84 Metformin Hcl Er (Glucophage Er) 500 Mg Tab 500 MG PO BID, #100 Multiple Vitamins W/ Minerals (Womens 50+ Multi Vitamin) 1 Tab Tab 1 TABLET PO DAILY Admission Information HPI (per Admitting provider): DATE OF ADMISSION: 09/19/2016 PRIMARY CARE DOCTOR: Dr. Diaz CHIEF COMPLAINT: Chest pain. HISTORY OF PRESENT ILLNESS: Medical history significant for reflux as per records, endometriosis as per records, asthma as per records, cervical adenoma maligna sp surgery, reactive hypoglycemia. Recent confinement in May 2013 for pleuritic chest pain. Stress test was normal. Four 4 days on and off left-sided chest pain going to her left shoulder. Burning in quality. No shortness of breath, no diaphoresis. Admits to some exertion at home, pushing furniture as per , some anxiety at home. Patient currently comfortable. Physical Exam (per Admitting): VITAL SIGNS: Blood pressure was noted to be 120/90, pulse rate 65, RR 18, 36.6, sats 98 on room air. GENERAL: Noted to be obese, slightly anxious, no respiratory distress. SKIN: Normal color. HEENT: [place] palpebral conjunctivae. Dry mucosa. NECK: Short neck. LUNGS: Decreased breath sounds. CHEST: Anterior chest wall tenderness on the left. HEART: Regular rate and rhythm. ABDOMEN: Soft. EXTREMITIES: No edema, no tenderness. NEUROLOGIC: No gross focality. Hospital Course ATYPICAL CHEST PAIN, POSSIBLE MUSCULAR ETIOLOGY, VS. GERD cardiac markers negative EKG non specific t wave changes in lateral leads 09/20/16: s/p Exercise Stress Test: Equivocal - also developed coughing spell after stress test, resolved with inhalers 09/21/16: s/p Cardiac Cath by Dr. Ye Normal Coronaries - reports pain on the right wrist- cath insertion site but no hematoma/ swelling discussed with Dr. Vargas, continue pain management, ice packs, cardiology office to call patient to check - cleared for discharge home - d/c home on: Tramadol 50mg q6h PRN and Tylenol PRN for pain Ice packs daily trial of Protonix 40mg po daily x 2 weeks - ff up with PCP in 3-5 days HISTORY OF REACTIVE HYPOGLYCEMIA continue ff up with Endocrinology dvt prophylaxis Lovenox given Disposition d/c home ff up with PCP in 3-5 days Total time spent on discharge = 45 minutes This includes examination of the patient, discharge planning, medication reconciliation, and communication with other providers. Discharge Instructions Discharge Instructions Admission Reason for Admission: Chest Pain Discharge Discharge Diagnosis / Problem: CHEST PAIN Discharge Goals Goal(s): Diagnostic testing, Therapeutic intervention Activity Recommendations Activity Limitations: as noted below (NO HEAVY LIFTING OR STRENUOUS ACTIVITIES UNTIL SEEN BY PRIMARY CARE PHYSICIAN) Instructions / Follow-Up Instructions / Follow-Up Please monitor your right wrist. Call your Primary Care Physician or return to ER immediately if with swelling/bruising/redness/bleeding on the right wrist, pain on the wrist is increasing or not improving, fever/chills, persistent nausea/vomiting, worsening or recurrence of symptoms. Do not drive while taking Tramadol or still having wrist pain. Avoid strenuous activities/lifting. Avoid acidic or spicy foods, alcohol, carbonated drinks. Follow up with Dr. Diaz on Monday September 26, 2016 at 11:00 AM. Current Hospital Diet Patient's current hospital diet: AHA Diet (Heart Healthy) Discharge Diet Recommended Diet: AHA Diet (Heart Healthy) Procedures Procedures Performed: Exercise Stress Test, Cardiac Catheterization Pending Studies Studies pending at discharge: no Laboratory Results Lipid Panel Test 09/20/16 04:25 Range/Units Triglycerides Level 198 H 0-150 mg/dl Cholesterol Level 212 H 0-200 mg/dl HDL Cholesterol 58 mg/dl Cholesterol/HDL Ratio 3.7 LDL Cholesterol, Calculated 114 mg/dl Medical Emergencies . Who to Call and When: Medical Emergencies: If at any time you feel your situation is an emergency, please call 911 immediately. . Non-Emergent Contact Non-Emergency issues call your: Primary Care Provider Call Non-Emergent contact if: you have a fever, your pain is not controlled, wound has increased drainage, wound has increased redness, wound has increased pain, you have any medication questions . Past History Medical & Surgical History: (1) Carpal tunnel syndrome (2) section (3) Cholecystectomy (4) Hypoglycemia (5) Dysfunctional uterine bleeding (6) Dysfunctional uterine bleeding (7) Chest pain . "Provider Documentation" section prepared by Julien Prescott. VTE Core Measure Inpt VTE Proph given/why not?: Enoxaparin (Lovenox)[facility] Drug Monitoring Program Search Results: patient reviewed within database, no issues identified
== END 2016-09-21 20:25 | disposition home or self-care (01) ==
LOC: ENRESERVTM → ENRESERVDT → C.EDB 16:08 → C.MED 21:33 → C.2T 09-21 14:27
PROVIDERS: ADMIT Internal Medicine; ATTEND Internal Medicine
DX: R07.89 Other chest pain (principal); J45.909 Unspecified asthma, uncomplicated; K21.9 Gastro-esophageal reflux disease without esophagitis; R73.02 Impaired glucose tolerance (oral); N80.9 Endometriosis, unspecified; Z90.49 Acquired absence of other specified parts of digestive tract; Z82.49 Family history of ischemic heart disease and other diseases of the circulatory system; Z83.3 Family history of diabetes mellitus

== ENCOUNTER 2017-06-19 17:19 | Emergency (ER) | payer OTHER ==
[~2017-06-19] VITALS: Ht 151.1 cm; Wt 84.6 kg
[~2017-06-19 17:19] MED LIST changes: +APRI28 PO; +CHOL1000 PO; +DEXT30TA7 PO; -FLAX1CAP11 PO; -GLUCTAB7 PO; -IBUP-1277 PO; +METF500T5 PO; +PRT40 PO; +TYL325X PO; +ULT50X PO
[2017-06-19 17:22] VITALS: TEMP 36.8; Ht 151.1 cm; Wt 84.6 kg
[2017-06-19] MEDS ORDERED: IMT50 PO (18:22)
[2017-06-19] MEDS ORDERED: ATR25 PO (18:22)
[2017-06-19] MEDS ORDERED: FLNIN/ NAE (18:22)
--- NOTE | 2017-06-19 18:26 | DIAGNOSTIC IMAGING REPORT ---
CHEST ONE VIEW PORTABLE CLINICAL HISTORY: Chest pain. COMPARISON STUDY: Chest radiograph September 19, 2016. FINDINGS: Lung volumes are normal. No pneumothorax or pleural effusion is present. Pulmonary vascularity is normal. Cardiomediastinal silhouette is normal. There is no consolidation. Cholecystectomy clips are noted. IMPRESSION: No acute cardiopulmonary findings. Electronically signed by: Ray Deluca M.D. 06/19/2017 6:25 PM Dictated Date/Time: 06/19/2017 6:25 PM
[2017-06-19 18:40] LABS: BASO % 0.2 %; BASO ABS # 0.01 K/uL (0-0.2); COMPLETE YES; EOS % 3.2 %; HEMATOCRIT 38.8 % (37-47); IG% 0.4 %; LYMPH % 25.7 %; LYMPH ABS # 1.43 K/uL (1.2-3.4); MEAN CELL VOLUME 90.2 fL (80-100); MEAN CORPUSCULAR HEMOGLOBIN 31.2 pg (25-34); MEAN CORPUSCULAR HGB CONC 34.5 g/dl (32-36); MEAN PLATELET VOLUME 11.7 fL (7.4-10.4); MONO % 8.3 %; NEUT % 62.2 %; PLATELET COUNT 263 K/uL (130-400); WHITE BLOOD COUNT 5.56 K/uL (4.8-10.8)
[2017-06-19 18:46] LABS: BUN/CREATININE RATIO 9.8 (10-20); CALCIUM 9.4 mg/dl (8.5-10.1); CREATININE 0.85 mg/dl (0.60-1.20); POTASSIUM 3.7 mmol/L (3.5-5.1)
[2017-06-19 18:51] LABS: ALB/GLOB RATIO 0.8 (0.9-2); CKMB/CK RATIO 2.4 (0-3.0)
[2017-06-19] MEDS ORDERED: OMEP40CA41 PO (19:33)
--- NOTE | 2017-06-19 19:34 | EMERGENCY ROOM VISIT NOTE ---
History First contact with patient: 17:39 Chief Complaint: CHEST PAIN Stated Complaint: CHEST/ESOPHAGUS PAIN Nursing Triage Summary: patient reports she started with pain in the center of her chest yesterday. The pain is intermittent. pain increases with eating, drinking and movement. History of Present Illness The patient is a 52 year old female who presents to the Emergency Room with complaints of pain in the center of her chest. The patient states that since yesterday, she has had a tight, burning sensation in the center of her chest. She states it was severe at first and she did have an episode of vomiting after eating. The pain has improved slightly since then, but she now reports a constant, 6/10 pain. She has been unable to eat or drink due to feeling nauseous and like she will vomit. The pain sometimes radiates across her chest in both directions. She denies any abdominal pain. The pain does not radiate into her jaw or arm. She denies any shortness of breath. There is no exertional component to the patient's pain. She has had a previous cholecystectomy. The patient was admitted in September for chest pain and had a cardiac catheterization which was normal. She states she was told that she had at the heart of an 18-year-old. She denies any history of diabetes, hypertension or hyperlipidemia. She reports that her paternal grandfather from an [place] in his 50s. Her mother has atrial fibrillation. She denies any history of CAD and her mother or father. The patient is not a smoker. She lives with her and drinks alcohol occasionally. Review of Systems A complete 10 point review of systems was reviewed with the patient with pertinent positives and negatives as per history of present illness. All else were negative. Past Medical/Surgical History Medical Problems: (1) Carpal tunnel syndrome (2) section (3) Chest pain (4) Cholecystectomy (5) Hypoglycemia Social History Smoking Status: Never Smoker Marital Status: Housing Status: lives with family Current/Historical Medications Scheduled Cholecalciferol (Vitamin D3), 1 TAB PO DAILY Ethinyl Estrad/Desogestrel (Apri), 1 TAB PO DAILY Fluticasone Propionate (Fluticasone Propionate), 2 SPRAYS JANICE DAILY Metformin Hcl Er (Glucophage Er), 500 MG PO BID Multiple Vitamins W/ Minerals (Womens 50+ Multi Vitamin), 1 TABLET PO DAILY Omeprazole (Prilosec), 40 MG PO DAILY Scheduled PRN Hydroxyzine HCl (Hydroxyzine HCl), 25 MG PO QID PRN for PRN Sumatriptan Succinate (Sumatriptan Succinate), 50 MG PO DIRECTED PRN for Headache Physical Exam Vital Signs Date Time Temp Pulse Resp B/P (MAP) Pulse Ox O2 Delivery O2 Flow Rate FiO2 06/19/17 20:00 56 18 131/88 98 06/19/17 19:13 57 06/19/17 19:00 56 18 123/75 99 Room Air 06/19/17 18:34 62 18 123/75 98 Room Air 06/19/17 17:22 36.8 53 18 176/67 97 Room Air Physical Exam VITALS: Vitals are noted on the nurse's note and reviewed by myself. Vital signs stable. GENERAL: This is a 52-year-old female, in no acute distress, nondiaphoretic, well-developed well-nourished. EARS: External auditory canals clear, tympanic membranes pearly huynh without erythema or effusion bilaterally. EYES: Pupils equal round and reactive to light and accommodation. MOUTH: Mucous membranes moist. NECK: Supple without nuchal rigidity. No lymphadenopathy. HEART: Regular rate and rhythm without murmurs gallops or rubs. LUNGS: Clear to auscultation bilaterally without wheezes, rales or rhonchi. ABDOMEN: Positive bowel sounds x 4. Soft, nontender, without masses or organomegaly. MUSCULOSKELETAL: No reproducible chest pain to palpation. NEURO: Patient was alert and oriented to person place and time. Medical Decision & Procedures ER Provider Diagnostic Interpretation: CHEST ONE VIEW PORTABLE CLINICAL HISTORY: Chest pain. COMPARISON STUDY: Chest radiograph September 19, 2016. FINDINGS: Lung volumes are normal. No pneumothorax or pleural effusion is present. Pulmonary vascularity is normal. Cardiomediastinal silhouette is normal. There is no consolidation. Cholecystectomy clips are noted. IMPRESSION: No acute cardiopulmonary findings. Laboratory Results 06/19/17 18:20 Red Blood Count 4.30, Mean Corpuscular Volume 90.2, Mean Corpuscular Hemoglobin 31.2, Mean Corpuscular Hemoglobin Concent 34.5, Mean Platelet Volume 11.7, Neutrophils (%) (Auto) 62.2, Lymphocytes (%) (Auto) 25.7, Monocytes (%) (Auto) 8.3, Eosinophils (%) (Auto) 3.2, Basophils (%) (Auto) 0.2, Neutrophils # (Auto) 3.46, Lymphocytes # (Auto) 1.43, Monocytes # (Auto) 0.46, Eosinophils # (Auto) 0.18, Basophils # (Auto) 0.01 06/19/17 18:20 Test 06/19/17 18:20 06/19/17 18:22 White Blood Count 5.56 K/uL (4.8-10.8) Red Blood Count 4.30 M/uL (4.2-5.4) Hemoglobin 13.4 g/dL (12.0-16.0) Hematocrit 38.8 % (37-47) Mean Corpuscular Volume 90.2 fL (80-100) Mean Corpuscular Hemoglobin 31.2 pg (25-34) Mean Corpuscular Hemoglobin Concent 34.5 g/dl (32-36) Platelet Count 263 K/uL (130-400) Mean Platelet Volume 11.7 fL (7.4-10.4) Neutrophils (%) (Auto) 62.2 % Lymphocytes (%) (Auto) 25.7 % Monocytes (%) (Auto) 8.3 % Eosinophils (%) (Auto) 3.2 % Basophils (%) (Auto) 0.2 % Neutrophils # (Auto) 3.46 K/uL (1.4-6.5) Lymphocytes # (Auto) 1.43 K/uL (1.2-3.4) Monocytes # (Auto) 0.46 K/uL (0.11-0.59) Eosinophils # (Auto) 0.18 K/uL (0-0.5) Basophils # (Auto) 0.01 K/uL (0-0.2) RDW Standard Deviation 44.4 fL (36.4-46.3) RDW Coefficient of Variation 13.5 % (11.5-14.5) Immature Granulocyte % (Auto) 0.4 % Immature Granulocyte # (Auto) 0.02 K/uL (0.00-0.02) Anion Gap 11.0 mmol/L (3-11) Est Creatinine Clear Calc Drug Dose 72.2 ml/min Estimated GFR () 90.0 Estimated GFR (Non- 77.7 BUN/Creatinine Ratio 9.8 (10-20) Calcium Level 9.4 mg/dl (8.5-10.1) Total Bilirubin 0.4 mg/dl (0.2-1) Aspartate Amino Transf (AST/SGOT) 18 U/L (15-37) Alanine Aminotransferase (ALT/SGPT) 23 U/L (12-78) Alkaline Phosphatase 58 U/L (45-117) Total Creatine Kinase 33 U/L (26-192) Creatine Kinase MB 0.8 ng/ml (0.5-3.6) Creatine Kinase MB Ratio 2.4 (0-3.0) Total Protein 7.9 gm/dl (6.4-8.2) Albumin 3.5 gm/dl (3.4-5.0) Globulin 4.4 gm/dl (2.5-4.0) Albumin/Globulin Ratio 0.8 (0.9-2) Lipase 241 U/L (73-393) Bedside Troponin I < 0.030 ng/ml (0-0.045) ECG Rate (beats per minute): 61 Rhythm: normal sinus Findings: no acute ischemic change, no ectopy Change: no significant change Medical Decision Differential diagnosis includes acute coronary syndrome, pulmonary embolism, pneumothorax, pericarditis, myocarditis, endocarditis, anxiety, musculoskeletal pain, GERD, costochondritis, pneumonia, among others. The patient is a 52-year-old female who presents today complaining of of her abdominal/chest pain. Labs revealed no leukocytosis, anemia or concerning electrolyte abnormalities. LFTs were not elevated. Troponin was negative. Given that the patient's symptoms have been ongoing for greater than 6 hours, I do not feel additional troponin is necessary. EKG does not show any acute ischemic changes. The patient's history is more consistent with gastritis/ GERD. She has no cardiac history and had a cardiac catheterization earlier this year which was completely unremarkable. Patient's HEART score was consulted and found to be 2, making the patient low risk for major adverse cardiac event. Given this, I do feel she is safe for outpatient workup. She will contact her primary care provider to schedule follow-up. The patient's case was reviewed with Dr. Brand, ED attending physician, who agreed with my assessment and treatment plan. Based on the patient's presentation and work up, I feel the patient is stable for outpatient treatment. The patient was educated to return to the emergency department for any worsening of their current condition or new/concerning symptoms. She will follow up with her PCP. Medication Reconcilliation Current Medication List: was personally reviewed by me Blood Pressure Screening Patient's blood pressure: Normal blood pressure Impression Primary Impression: Substernal precordial chest pain Departure Information Dispostion Home / Self-Care Condition GOOD Prescriptions Omeprazole (PRILOSEC) 40 Mg Cap 40 MG PO DAILY for 14 Days, #14 CAP Prov: Sirena Foley, JIGNESH 06/19/17 Referrals Justino Diaz MD (PCP) Patient Instructions ED GERD, GERD Lifestyle Changes, [facility] Additional Instructions You have been treated in the Emergency Department for your suspected Gastroesophageal Reflux Disease or GERD for short. Laboratory results and Imaging studies have ruled out any other emergent or surgical gastrointestinal issues. You should take Prilosec as prescribed. This is a drug that will help with any possible indigestion that might be contributing to your pain/discomfort. You should take this medicine EVERY day for the best results. This medicine is not intended to be used for immediate relief of symptoms, but rather to reduce the risk of recurrence of symptoms. You can consider using TUMS for relief of any indigestion that you might be experiencing. This drug is fast acting and can be used for immediate relief of your indigestion symptoms. You should eat a bland diet for the next few days. Some suggested bland dietary foods: Bananas, Rice, Applesauce, [place], or Boiled Chicken. These foods are easy to digest and help you to recover at a faster rate. All meals for the next few days should be small to plisse machine operator helper in bowel rest. For pain control, you can use the following [id number] medicines (if >12 yo): - Regular strength (325mg/tab) Tylenol (acetaminophen) 2 tabs every 4-6 hours as needed. Do not exceed 12 tablets in a 24 hour period. Avoid taking more than 4 grams (4000 mg) of Tylenol per day. This includes any other sources of acetaminophen you may take on a regular basis. - Regular strength (200 mg/tab) Advil (ibuprofen) 1-2 tabs every 4-6 hours as needed. Do not exceed a dose of 3200 mg per day. You should schedule a follow-up appointment with your Primary Care Provider in 2 -3 days for further evaluation from today's Emergency Department visit. Your Primary Care Provider should be involved in the addition of any new medications. Your Primary Care Provider may also refer you to a Friction Welding Machine Operator, a doctor who specializes in the digestive system. Return to the Emergency Department if your current symptoms worsen despite treatment course outlined above, or if you develop any of the following symptoms : worsening abdominal pain, associated chest or back pain, worsening nausea/ vomiting, dizziness, shortness of breath, blood in your vomit, or fainting.
[2017-06-19 20:00] VITALS: BP 131/88; PULSE 56; O2SAT 98
== END 2017-06-19 20:01 | disposition home or self-care (01) ==
LOC: C.EDB 17:20
DX: R07.2 Precordial pain (principal); R11.2 Nausea with vomiting, unspecified; E16.2 Hypoglycemia, unspecified; Z90.49 Acquired absence of other specified parts of digestive tract; Z79.3 Long term (current) use of hormonal contraceptives; Z82.49 Family history of ischemic heart disease and other diseases of the circulatory system